=== PATIENT | female | born 1995 | race Two or more races ===

== ENCOUNTER 2019-11-06 16:45 | Emergency (ER) | payer MEDICAID ==
[~2019-11-06] VITALS: Ht 167.6 cm; Wt 52.2 kg
--- NOTE | 2019-11-06 16:45 | NUR ---
ED Nurse Note: Patient ambulated to ED from home with complaints of abdominal pain. Per patient pain is on right lower quadrant now but was left lower quadrant before. Patient stated that she was discharged in [facility] 2 days ago. Patient is AAOx4 and ambulatory. Per patient she experiences mild dizziness/lightheadedness as of the moment but denies any nausea nor vomiting.
--- NOTE | 2019-11-06 17:00 | NUR ---
ED Nurse Note: ERMD at bedside
[2019-11-06 17:20] VITALS: BP 94/48
--- NOTE | 2019-11-06 17:23 | Emergency Room Report ---
History of Present Illness General Chief Complaint: Abdominal Pain Source: Patient Present Illness HPI Disclaimer: Please note that this report is being documented using [employer] technology. This can lead to erroneous entry secondary to incorrect interpretation by the dictating instrument. HPI: 24-year-old otherwise healthy female presents for evaluation of abdominal pain. Symptoms present approximately 1 week. She notes migratory lower abdominal pain and cramping currently on the left side. Several days ago she was seen at [facility] where she had right lower quadrant pain and vomiting. She was evaluated but no imaging was performed. She was discharged with antinausea medications. She awoke today having worsening 10/10 abdominal pain on the left side that is nonradiating. Denies dysuria, hematuria. LMP was 10/21. Denies vaginal bleeding or discharge. Denies fever, chills, chest pain, shortness of breath. Reports left-sided flank pain. PMH: Denies PSH: Denies Allergies: Denies Social Hx: Denies Allergies: Coded Allergies: No Known Allergies (Unverified , 11/06/19) COVID-19 Screening Contact w/high risk pt: No Recent Travel to affected area: No Experienced COVID-19 symptoms?: No COVID-19 Testing performed LEAD SALES CONSULTANT: No Patient History Last Menstrual Period: 10/22/19 Now: No Nursing Documentation-PMH Past Medical History: No Stated History Review of Systems All Other Systems: negative except mentioned in HPI Physical Exam Vital Signs Date Time Temp Pulse Resp B/P (MAP) Pulse Ox O2 Delivery O2 Flow Rate FiO2 11/06/19 16:49 98.2 116 19 94/48 (63) 95 Room Air General: Awake and alert, no acute distress HEENT: NC/AT. EOMI. Cardiovascular: Tachycardic. S1 and S2 normal. No murmur appreciated Resp: Normal work of breathing. No cough, wheezing or crackles appreciated Abdomen: Abdomen is soft, nondistended. Tender palpation the left lower quadrant. Mild tenderness right lower quadrant no rebound. No masses. Skin: Intact. No abrasions, laceration or rash over the exposed skin MSK: Normal tone and bulk. Moving all extremities. No obvious deformity. Neuro: Awake and alert. Mentating appropriately. Medical Decision Making Diagnostic Impression: Primary Impression: Ovarian cyst Additional Impression: Abdominal pain ER Course 24-year-old female presents for evaluation of 1 week lower abdominal pain and cramping. Differential includes was not limited to UTI, pyelonephritis, ectopic , intra-abdominal abscess, ovarian torsion, ovarian cyst, kidney stone, mesenteric ischemia to name a few. Broad labs were obtained which returned within normal limits. hCG was negative and CT scan of the abdomen and pelvis was obtained due to worsening pain. No acute findings were reported. An ultrasound was obtained initially concerning for ovarian cyst according to water pollution control technician report. Stat read found no acute pathology but did find some trace free fluid which may be physiologic or due to a ruptured ovarian cyst. Patient was treated with pain medication presumably ruptured cyst. We will follow-up with RESIDENTIAL THERAPIST. Prescribed additional pain medication for short-term. Can return with any new or worsening symptoms. Stable for outpatient follow-up. Laboratory Tests Test 11/06/19 17:00 White Blood Count 10.5 K/UL (4.8-10.8) Red Blood Count 4.63 M/UL (4.20-5.40) Hemoglobin 13.7 G/DL (12.0-16.0) Hematocrit 42.6 % (37.0-47.0) Mean Corpuscular Volume 92 FL (80-99) Mean Corpuscular Hemoglobin 29.5 PG (27.0-31.0) Mean Corpuscular Hemoglobin Concent 32.0 G/DL (32.0-36.0) Red Cell Distribution Width 11.4 % (11.6-14.8) L Platelet Count 267 K/UL (150-450) Mean Platelet Volume 8.1 FL (6.5-10.1) Neutrophils (%) (Auto) 70.0 % (45.0-75.0) Lymphocytes (%) (Auto) 20.4 % (20.0-45.0) Monocytes (%) (Auto) 6.7 % (1.0-10.0) Eosinophils (%) (Auto) 1.5 % (0.0-3.0) Basophils (%) (Auto) 1.4 % (0.0-2.0) Urine Color Yellow Urine Appearance Slightly cloudy Urine pH 5 (4.5-8.0) Urine Specific [place] 1.020 (1.005-1.035) Urine Protein 1+ (NEGATIVE) H Urine Glucose (UA) Negative (NEGATIVE) Urine Ketones 3+ (NEGATIVE) H Urine Blood 1+ (NEGATIVE) H Urine Nitrite Negative (NEGATIVE) Urine Bilirubin Negative (NEGATIVE) Urine Urobilinogen Normal MG/DL (0.0-1.0) Urine Leukocyte Esterase 1+ (NEGATIVE) H Urine RBC 2-4 /HPF (0 - 2) H Urine WBC 2-4 /HPF (0 - 2) Urine Squamous Epithelial Cells Few /LPF (NONE/OCC) Urine Bacteria Few /HPF (NONE) Urine HCG, Qualitative Negative (NEGATIVE) Sodium Level 140 MMOL/L (136-145) Potassium Level 3.1 MMOL/L (3.5-5.1) L Chloride Level 102 MMOL/L (98-107) Carbon Dioxide Level 28 MMOL/L (21-32) Anion Gap 10 mmol/L (5-15) Blood Urea Nitrogen 6 mg/dL (7-18) L Creatinine 0.9 MG/DL (0.55-1.30) Estimated Glomerular Filtration Rate > 60 mL/min (>60) Glucose Level 81 MG/DL (74-106) Calcium Level 9.0 MG/DL (8.5-10.1) Total Bilirubin 0.4 MG/DL (0.2-1.0) Aspartate Amino Transferase (AST) 22 U/L (15-37) Alanine Aminotransferase (ALT) 18 U/L (12-78) Alkaline Phosphatase 74 U/L (46-116) Total Protein 8.1 G/DL (6.4-8.2) Albumin 4.2 G/DL (3.4-5.0) Globulin 3.9 g/dL Albumin/Globulin Ratio 1.1 (1.0-2.7) Lipase 147 U/L (73-393) CT/MRI/US Diagnostic Results CT/MRI/US Diagnostic Results : Impression Final Report EXAM: CT Abdomen and Pelvis With Intravenous Contrast CLINICAL HISTORY: ABD PAIN TECHNIQUE: Axial computed tomography images of the abdomen and pelvis with intravenous contrast. CTDI is 4 mGy and DLP is 187 mGy-cm. One or more of the following dose reduction techniques were used: automated exposure control, adjustment of the mA and/or kV according to patient size, use of iterative reconstruction technique. Coronal and sagittal reformatted images were created and reviewed. COMPARISON: No relevant prior studies available. FINDINGS: Lung bases: Unremarkable. No mass. No consolidation. ABDOMEN: Liver: Unremarkable. No mass. Gallbladder and bile ducts: Unremarkable. No calcified stones. No ductal dilation. Pancreas: Unremarkable. No mass. No ductal dilation. Spleen: Unremarkable. No splenomegaly. Adrenals: Unremarkable. No mass. Kidneys and ureters: Unremarkable. No solid mass. No hydronephrosis. Stomach and bowel: Unremarkable. No obstruction. No mucosal thickening. PELVIS: Appendix: Unremarkable appendix. Bladder: Unremarkable. No mass. Reproductive: Unremarkable as visualized. ABDOMEN and PELVIS: Intraperitoneal space: Unremarkable. No free air. No significant fluid collection. Bones/joints: No acute fracture. No dislocation. Soft tissues: Unremarkable. Vasculature: Unremarkable. No abdominal aortic aneurysm. Lymph nodes: Unremarkable. No enlarged lymph nodes. IMPRESSION: 1. No acute abnormality definitively identified to account for patient presentation. 2. Unremarkable appendix. 3. Unremarkable study. Radiologist: Aurelio Polanco MD Electronically Signed: 11/06/19 18:53 Study ready at 18:50 and initial results transmitted at 18:53 Final Report EXAM: US Pelvis Transvaginal and US Duplex Arterial/Venous of the Pelvis, Complete CLINICAL HISTORY: PAIN TECHNIQUE: Real-time transvaginal pelvic ultrasound with image documentation. Transvaginal imaging was used for better evaluation of the endometrium and adnexa. Real-time duplex ultrasound scan of the arterial and venous flow of the pelvis with color Doppler flow and spectral waveform analysis. COMPARISON: Same day CT FINDINGS: Uterus/cervix: Uterus 6 x 4.6 x 3 cm Endometrium 0.6 cm No myometrial mass. Right ovary: Right ovary 3 x 1.6 x 2.7 cm No torsion. Left ovary: Left ovary 3 x 3 x 1.7 cm No torsion. Free fluid: Likely physiologic pelvic free fluid. Bladder: Empty bladder which cannot be evaluated with this probe. Other findings: Unremarkable study. IMPRESSION: 1. No acute abnormality definitively identified to account for patient presentation. 2. Unremarkable study. Radiologist: Aurelio Polanco MD Electronically Signed: 11/06/19 20:24 Study ready at 20:20 and initial results transmitted at 20:24 Last Vital Signs Date Time Temp Pulse Resp B/P (MAP) Pulse Ox O2 Delivery O2 Flow Rate FiO2 11/06/19 16:49 98.2 116 19 94/48 (63) 95 Room Air Disposition: HOME, SELF-CARE Condition: Improved Scripts Ondansetron Odt* (ZOFRAN ODT*) 4 Mg Tab.rapdis 4 MG BC EVERY 6 HOURS PRN for Nausea & Vomiting, #10 TAB 0 Refills Prov: Haider He MD 11/06/19 Hydrocodone Bit/Acetaminophen 5-325* (NORCO 5-325 TABLET*) 1 Each Tablet 1 TAB ORAL Q6H PRN for FOR PAIN, #10 TAB 0 Refills Prov: Haider He MD 11/06/19 Ibuprofen* (MOTRIN*) 600 Mg Tablet 600 MG ORAL Q6H PRN for For Pain, #30 TAB 0 Refills Prov: Haider He MD 11/06/19 Haider He MD November 06, 2019 17:23
[2019-11-06] MEDS ORDERED: Omnipaque-300 100ml vial INJ PRN (17:30)
[2019-11-06 17:57] LABS: ANION GAP 10 mmol/L (5-15); BLOOD UREA NITROGEN 6 mg/dL (7-18); CARBON DIOXIDE 28 MMOL/L (21-32); CHLORIDE 102 MMOL/L (98-107); CREATININE 0.9 MG/DL (0.55-1.30); POTASSIUM 3.1 MMOL/L (3.5-5.1); SODIUM 140 MMOL/L (136-145)
[2019-11-06 17:59] LABS: ALANINE AMINOTRANSFERASE 18 U/L (12-78); ALBUMIN 4.2 G/DL (3.4-5.0); ALBUMIN/GLOBULIN RATIO 1.1 (1.0-2.7); ALKALINE PHOSPHATASE 74 U/L (46-116); ASPARTATE AMINO TRANSFERASE 22 U/L (15-37); BILIRUBIN,TOTAL 0.4 MG/DL (0.2-1.0)
[2019-11-06 18:00] LABS: APPEARANCE,URINE SLIGHTLY CLOUDY; BILIRUBIN, URINE NEGATIVE (NEGATIVE); GLUCOSE, URINE (UA) NEGATIVE (NEGATIVE); KETONES,URINE 3+ (NEGATIVE); LEUKOCYTE ESTERASE ,URINE 1+ (NEGATIVE); NITRITE,URINE NEGATIVE (NEGATIVE); PH,URINE 5 (4.5-8.0); PROTEIN,URINE 1+ (NEGATIVE); UROBILINOGEN,URINE NORMAL MG/DL (0.0-1.0)
[2019-11-06 18:02] LABS: BASOPHILS % (AUTO) 1.4 % (0.0-2.0); EOSINOPHILS % (AUTO) 1.5 % (0.0-3.0); HEMATOCRIT 42.6 % (37.0-47.0); HEMOGLOBIN 13.7 G/DL (12.0-16.0); LYMPHOCYTES % (AUTO) 20.4 % (20.0-45.0); MEAN CORPUSCULAR VOLUME 92 FL (80-99); MONOCYTES % (AUTO) 6.7 % (1.0-10.0); PLATELET COUNT 267 K/UL (150-450); RED BLOOD COUNT 4.63 M/UL (4.20-5.40); RED CELL DISTRIBUTION WIDTH 11.4 % (11.6-14.8); WHITE BLOOD COUNT 10.5 K/UL (4.8-10.8)
[2019-11-06 18:17] LABS: COLOR,URINE YELLOW
--- NOTE | 2019-11-06 18:30 | NUR ---
ED Nurse Note: Patient to CT-scan
--- NOTE | 2019-11-06 18:51 | NUR ---
ED Nurse Note: Patient back from CT scan
--- NOTE | 2019-11-06 18:54 | Diagnostic Imaging Report ---
EXAM: CT Abdomen and Pelvis With Intravenous Contrast CLINICAL HISTORY: ABD PAIN TECHNIQUE: Axial computed tomography images of the abdomen and pelvis with intravenous contrast. CTDI is 4 mGy and DLP is 187 mGy-cm. One or more of the following dose reduction techniques were used: automated exposure control, adjustment of the mA and/or kV according to patient size, use of iterative reconstruction technique. Coronal and sagittal reformatted images were created and reviewed. COMPARISON: No relevant prior studies available. FINDINGS: Lung bases: Unremarkable. No mass. No consolidation. ABDOMEN: Liver: Unremarkable. No mass. Gallbladder and bile ducts: Unremarkable. No calcified stones. No ductal dilation. Pancreas: Unremarkable. No mass. No ductal dilation. Spleen: Unremarkable. No splenomegaly. Adrenals: Unremarkable. No mass. Kidneys and ureters: Unremarkable. No solid mass. No hydronephrosis. Stomach and bowel: Unremarkable. No obstruction. No mucosal thickening. PELVIS: Appendix: Unremarkable appendix. Bladder: Unremarkable. No mass. Reproductive: Unremarkable as visualized. ABDOMEN and PELVIS: Intraperitoneal space: Unremarkable. No free air. No significant fluid collection. Bones/joints: No acute fracture. No dislocation. Soft tissues: Unremarkable. Vasculature: Unremarkable. No abdominal aortic aneurysm. Lymph nodes: Unremarkable. No enlarged lymph nodes. IMPRESSION: 1. No acute abnormality definitively identified to account for patient presentation. 2. Unremarkable appendix. 3. Unremarkable study.
[2019-11-06] MEDS ORDERED: Morphine Sulfate 4mg/ml Inj (IV USE ONLY) IVP ONE ×2 (19:00→20:15)
--- NOTE | 2019-11-06 19:09 | NUR ---
HAND-OFF: Report given to Breonna.
--- NOTE | 2019-11-06 19:10 | NUR ---
ED Nurse Note: pt care endorsed by TOLU Davis Addendum: 11/06/19 at 1922 by LISSETH pt care endorsed by SULAIMAN Davis. pt appears to be in pain, tearful. ERMD is aware, pt has US pending
[2019-11-06 19:12] VITALS: BP 98/49
--- NOTE | 2019-11-06 19:37 | NUR ---
ED Nurse Note: US at pt bedside
[2019-11-06] MEDS ORDERED: ONDANSETRON ODT4 MG BC (20:10)
[2019-11-06] MEDS ORDERED: IBUPROFEN600 M1 ORAL (20:10)
[2019-11-06] MEDS ORDERED: NORCO 5-325 TA1 EAC1 ORAL (20:10)
[2019-11-06] MEDS ORDERED: Ketorolac 30mg Inj IV ONE (20:15)
--- NOTE | 2019-11-06 20:25 | Diagnostic Imaging Report ---
EXAM: US Pelvis Transvaginal and US Duplex Arterial/Venous of the Pelvis, Complete CLINICAL HISTORY: PAIN TECHNIQUE: Real-time transvaginal pelvic ultrasound with image documentation. Transvaginal imaging was used for better evaluation of the endometrium and adnexa. Real-time duplex ultrasound scan of the arterial and venous flow of the pelvis with color Doppler flow and spectral waveform analysis. COMPARISON: Same day CT FINDINGS: Uterus/cervix: Uterus 6 x 4.6 x 3 cm Endometrium 0.6 cm No myometrial mass. Right ovary: Right ovary 3 x 1.6 x 2.7 cm No torsion. Left ovary: Left ovary 3 x 3 x 1.7 cm No torsion. Free fluid: Likely physiologic pelvic free fluid. Bladder: Empty bladder which cannot be evaluated with this probe. Other findings: Unremarkable study. IMPRESSION: 1. No acute abnormality definitively identified to account for patient presentation. 2. Unremarkable study.
--- NOTE | 2019-11-06 20:25 | Diagnostic Imaging Report ---
EXAM: US Pelvis Transabdominal, Complete CLINICAL HISTORY: PAIN TECHNIQUE: Real-time complete transabdominal pelvic ultrasound with image documentation. COMPARISON: Same day CT FINDINGS: Uterus/cervix: Uterus 6 x 4.6 x 3 cm Endometrium 0.6 cm No myometrial mass. Right ovary: Right ovary 3 x 1.6 x 2.7 cm No torsion. Left ovary: Left ovary 3 x 3 x 1.7 cm No torsion. Free fluid: Likely physiologic pelvic free fluid. Bladder: Empty bladder which cannot be evaluated with this probe. Other findings: Unremarkable study. IMPRESSION: 1. No acute abnormality definitively identified to account for patient presentation. 2. Unremarkable study.
[2019-11-06 20:30] VITALS: BP 98/49
--- NOTE | 2019-11-06 20:30 | NUR ---
ER DISCHARGE NOTE: Patient is cleared to be discharged per ERMD, pt is aox4, on room air, with stable vital signs. pt was given dc and prescription instructions, pt was able to verbalize understanding, pt id band and iv site removed without complications. pt is able to ambulate with steady gait. pt took all belongings.
== END 2019-11-06 20:30 | disposition home or self-care (01) ==
LOC: EMR 17:29
DX: N83.209 Unspecified ovarian cyst, unspecified side (principal); R10.32 Left lower quadrant pain; R10.31 Right lower quadrant pain
CPT/HCPCS: 36415; 74177; 76830; 76856; 80053; 81003; 81025; 83690; 85025; 96361; 96374; 96375; 96376; J1885; J2270; J7030; Q9967; Z7502; 99284; J8499

== ENCOUNTER 2019-11-21 22:17 | Emergency (ER) | payer MEDICAID ==
[~2019-11-21] VITALS: Ht 167.6 cm; Wt 54.4 kg
[~2019-11-21 22:17] MED LIST: IBUPROFEN600 M1 ORAL; NORCO 5-325 TA1 EAC1 ORAL; ONDANSETRON ODT4 MG BC
[2019-11-21 22:28] VITALS: BP 111/68
--- NOTE | 2019-11-21 22:28 | NUR ---
ED Nurse Note: Patient walked in to ED from home c/o right rib pain radiating to right back since yesterday, unk cause. Denies trauma/ injury. No SOB. ERMD at bedside.
--- NOTE | 2019-11-21 22:34 | Emergency Room Report ---
History of Present Illness General Chief Complaint: Pain Source: Patient Present Illness HPI This a 24-year-old female with no past medical history. She presents with chief plaint of right rib/right upper quadrant pain. Pain started mild yesterday but increasing pain now. Pain is to the right upper quadrant rating to the back. No nausea no vomiting. No fever chills. Pain is 9 out of 10. Worse with certain movement. Better with rest. Not associated with food. Allergies: Coded Allergies: No Known Allergies (Unverified , 11/06/19) COVID-19 Screening Contact w/high risk pt: No Recent Travel to affected area: No Experienced COVID-19 symptoms?: No COVID-19 Testing performed SENIOR NETWORK SECURITY ENGINEER: No Patient History Past Medical History: see triage record, old chart reviewed Past Surgical History: none Pertinent Family History: none Social History: Denies: smoking Last Menstrual Period: October 22, 2019 Now: No Immunizations: other Reviewed Nursing Documentation: PMH: Agreed; PSxH: Agreed Nursing Documentation-PMH Past Medical History: No Stated History Review of Systems Eye: Denies: eye pain, blurred vision ENT: Denies: ear pain, nose congestion, throat swelling Respiratory: Denies: cough, shortness of breath Cardiovascular: Denies: chest pain, palpitations Gastrointestinal: Reports: abdominal pain; Denies: diarrhea, nausea, vomiting Musculoskeletal: Denies: back pain, joint pain Skin: Denies: rash Neurological: Denies: headache, numbness Endocrine: Denies: increased thirst, increased urine Hematologic/Lymphatic: Denies: easy bruising All Other Systems: negative except mentioned in HPI Physical Exam Vital Signs Date Time Temp Pulse Resp B/P (MAP) Pulse Ox O2 Delivery O2 Flow Rate FiO2 11/21/19 22:22 98.4 81 16 111/68 (82) 96 Room Air Vitals normal Sp02 EP Interpretation: reviewed, normal General Appearance: well appearing, no apparent distress, alert Head: normocephalic, atraumatic Eyes: bilateral eye PERRL, bilateral eye EOMI ENT: hearing grossly normal, normal pharynx Neck: full range of motion, supple, no meningismus Respiratory: chest non-tender, lungs clear, normal breath sounds Cardiovascular #1: regular rate, rhythm, no murmur Gastrointestinal: normal bowel sounds, no mass, no organomegaly, no bruit, non- distended, tenderness - Upper quadrant, right Musculoskeletal: back normal, normal range of motion, gait/station normal Psychiatric: mood/affect normal Medical Decision Making Diagnostic Impression: Primary Impression: Cholelithiasis Qualified Codes: K80.20 - Calculus of gallbladder without cholecystitis without obstruction Additional Impression: UTI (urinary tract infection) Qualified Codes: N30.00 - Acute cystitis without hematuria ER Course This is a 24-year-old female presents with right upper quadrant pain. Ultrasound showed 4 mm gallbladder polyp versus gallstone. No evidence of any obstruction or infection. Pain is better controlled now. Will discharge home. CT/MRI/US Diagnostic Results CT/MRI/US Diagnostic Results : Imaging Test Ordered: Gallbladder ultrasound Impression Read by radiologist. 4 mm gallbladder polyp versus non-shadowing calculus. No cholecystitis. Last Vital Signs Date Time Temp Pulse Resp B/P (MAP) Pulse Ox O2 Delivery O2 Flow Rate FiO2 11/21/19 22:28 98.4 81 16 111/68 96 Room Air Status: improved Disposition: HOME, SELF-CARE Condition: Stable Scripts Hydrocodone/Acetaminophen 5-325* (HYDROCODONE/ACETAMINOPHEN 5-325*) 1 Each Tablet 1 TAB ORAL Q6H PRN for For Pain, #20 TAB 0 Refills Prov: Abhay Lerma MD 11/22/19 Nitrofurantoin Monohyd/M-Cryst (Nitrofurantoin [place]-Mcr 100 mg) 100 Mg Capsule 100 MG ORAL Q12H, #14 CAP Prov: Abhay Lerma MD 11/22/19 Referrals: NOT CHOSEN IPA/,REFERRING (PCP) Additional Instructions: Follow-up with your doctor in 7 days. You may need referral to see a surgeon if symptoms continue. Return if symptoms worsen. Abhay Lerma MD Nov 21, 2019 22:34
--- NOTE | 2019-11-21 22:35 | NUR ---
ED Nurse Note: IV line established. Blood and urine specimen collected and sent to lab.
[2019-11-21] MEDS ORDERED: Morphine Sulfate 4mg/ml Inj (IV USE ONLY) IVP ONE (22:45)
--- NOTE | 2019-11-21 23:04 | NUR ---
HAND-OFF: Report given to Sonal HILARIO.
[2019-11-21 23:05] LABS: APPEARANCE,URINE CLEAR; BILIRUBIN, URINE NEGATIVE (NEGATIVE); COLOR,URINE PALE YELLOW; GLUCOSE, URINE (UA) NEGATIVE (NEGATIVE); KETONES,URINE NEGATIVE (NEGATIVE); LEUKOCYTE ESTERASE ,URINE 1+ (NEGATIVE); NITRITE,URINE NEGATIVE (NEGATIVE); PH,URINE 6 (4.5-8.0); PROTEIN,URINE NEGATIVE (NEGATIVE); UROBILINOGEN,URINE NORMAL MG/DL (0.0-1.0)
--- NOTE | 2019-11-21 23:11 | NUR ---
ED Nurse Note: US at bedside
[2019-11-21 23:19] LABS: ANION GAP 8 mmol/L (5-15); BLOOD UREA NITROGEN 14 mg/dL (7-18); CALCIUM 8.3 MG/DL (8.5-10.1); CARBON DIOXIDE 27 MMOL/L (21-32); CHLORIDE 101 MMOL/L (98-107); CREATININE 0.9 MG/DL (0.55-1.30); SODIUM 136 MMOL/L (136-145)
[2019-11-21 23:23] LABS: ALANINE AMINOTRANSFERASE 14 U/L (12-78); ALBUMIN 3.2 G/DL (3.4-5.0); ALBUMIN/GLOBULIN RATIO 0.7 (1.0-2.7); ALKALINE PHOSPHATASE 75 U/L (46-116); ASPARTATE AMINO TRANSFERASE 15 U/L (15-37); BILIRUBIN,TOTAL 0.2 MG/DL (0.2-1.0)
[2019-11-21 23:24] LABS: BASOPHILS % (AUTO) 0.9 % (0.0-2.0); EOSINOPHILS % (AUTO) 0.9 % (0.0-3.0); HEMATOCRIT 34.7 % (37.0-47.0); HEMOGLOBIN 10.8 G/DL (12.0-16.0); LYMPHOCYTES % (AUTO) 10.2 % (20.0-45.0); MEAN CORPUSCULAR VOLUME 95 FL (80-99); MONOCYTES % (AUTO) 7.1 % (1.0-10.0); NEUTROPHILS % (AUTO) 80.9 % (45.0-75.0); PLATELET COUNT 254 K/UL (150-450); RED BLOOD COUNT 3.65 M/UL (4.20-5.40); RED CELL DISTRIBUTION WIDTH 12.1 % (11.6-14.8); WHITE BLOOD COUNT 11.7 K/UL (4.8-10.8)
[2019-11-21] MEDS ORDERED: cefTRIAXone 1 GM in NS 55 ML IVPB ONE (23:45)
--- NOTE | 2019-11-21 23:52 | Diagnostic Imaging Report ---
EXAM: US Abdomen Limited, Right Upper Quadrant CLINICAL HISTORY: ABD PAIN TECHNIQUE: Real-time ultrasound of the right upper quadrant with image documentation. COMPARISON: No relevant prior studies available. FINDINGS: Liver: Unremarkable. No mass. No intrahepatic bile duct dilation. Gallbladder: There is a 4 mm echogenic focus in the gallbladder which is most likely a polyp versus non-shadowing calculus. The gallbladder wall measures 1.8 mm in thickness. Common bile duct: The common bile duct measures 4.2 mm in diameter. No stones. No dilation. Pancreas: Unremarkable as visualized. Right kidney: Unremarkable. No stones. No solid mass. No hydronephrosis. IMPRESSION: 1. No cholecystitis. 2. 4 mm gallbladder polyp versus non-shadowing calculus.
[2019-11-22] MEDS ORDERED: Morphine Sulfate 4mg/ml Inj (IV USE ONLY) IVP ONE
--- NOTE | 2019-11-22 00:05 | NUR ---
ED Nurse Note: all mediations administered, pt tolerated well no ss of distress noted.
[2019-11-22] MEDS ORDERED: HYDROCODON-ACE1 EA15 ORAL (00:06)
[2019-11-22] MEDS ORDERED: MACROBID100 MG ORAL (00:06)
[2019-11-22 00:36] VITALS: BP 116/65
--- NOTE | 2019-11-22 00:36 | NUR ---
ER DISCHARGE NOTE: Patient is cleared to be discharged home per ERMD, pt is aox4, 99% on room air, with stable vital signs. pt was given dc and prescription instructions, pt was able to verbalize understanding, pt id band and iv site removed without complications. pt is able to ambulate with steady gait. pt took all belongings.
[2019-11-23] MEDS ORDERED: PERCOCET 5-3251 EACH ORAL (05:51)
== END 2019-11-22 00:36 | disposition home or self-care (01) ==
LOC: EMR 22:32
DX: K80.20 Calculus of gallbladder without cholecystitis without obstruction (principal); N30.00 Acute cystitis without hematuria; R07.81 Pleurodynia
CPT/HCPCS: 36415; 76700; 80053; 81003; 81025; 83690; 85025; 87086; 96361; 96365; 96375; 96376; J0696; J2270; J2405; Z7502; 99284

== ENCOUNTER 2019-11-23 03:38 | Emergency (ER) | payer MEDICAID ==
[~2019-11-23] VITALS: Ht 167.6 cm; Wt 54.4 kg
[~2019-11-23 03:38] MED LIST changes: +HYDROCODON-ACE1 EA15 ORAL; +MACROBID100 MG ORAL
--- NOTE | 2019-11-23 03:57 | NUR ---
ED Nurse Note: Patient walked into the ED with complaints of RUQ pain in the abdomen that radiates at the back pain scale 10/10. Patient was seen in the ED 2 days ago for gallstones and was taking the prescribed meds. Per patient pain is radiating to chest as well. Patient is AAOX4 and ambulatory. Placed on monitor bed
--- NOTE | 2019-11-23 04:00 | NUR ---
ED Nurse Note: ERMD at bedside
--- NOTE | 2019-11-23 04:13 | Emergency Room Report ---
History of Present Illness General Chief Complaint: Abdominal Pain Source: Patient Present Illness HPI Is a 24-year-old female with no past medical history. She presents with chief complaint of abdominal pain. I saw her yesterday for right upper quadrant pain. Laboratory data was unremarkable. Urine analysis showed possible infection. I did an ultrasound which show gallbladder polyp versus stone. Patient was discharged home on pain medication and antibiotics. She stated never got better. Pain is persistent in that area. Worse when she lays down. Worse with palpation. No nausea no vomiting. No diarrhea. Denies any fever chills. Denies any trauma. Pain is 10 out of 10. Allergies: Coded Allergies: No Known Allergies (Unverified , 11/06/19) COVID-19 Screening Contact w/high risk pt: No Recent Travel to affected area: No Experienced COVID-19 symptoms?: No COVID-19 Testing performed CORN COOKER: No Patient History Past Medical History: see triage record, old chart reviewed Past Surgical History: none Pertinent Family History: none Social History: Denies: smoking Last Menstrual Period: 11/21 Now: No : 0 Para: 0 Immunizations: other Reviewed Nursing Documentation: PMH: Agreed; PSxH: Agreed Nursing Documentation-PMH Past Medical History: No Stated History Review of Systems Eye: Denies: eye pain, blurred vision ENT: Denies: ear pain, nose congestion, throat swelling Respiratory: Denies: cough, shortness of breath Cardiovascular: Denies: chest pain, palpitations Gastrointestinal: Reports: abdominal pain; Denies: diarrhea, nausea, vomiting Musculoskeletal: Denies: back pain, joint pain Skin: Denies: rash Neurological: Denies: headache, numbness Endocrine: Denies: increased thirst, increased urine Hematologic/Lymphatic: Denies: easy bruising All Other Systems: negative except mentioned in HPI Physical Exam Vital Signs Date Time Temp Pulse Resp B/P (MAP) Pulse Ox O2 Delivery O2 Flow Rate FiO2 11/23/19 03:50 99.0 84 19 112/73 (86) 98 Room Air Vitals normal Sp02 EP Interpretation: reviewed, normal General Appearance: well appearing, no apparent distress, alert Head: normocephalic, atraumatic Eyes: bilateral eye PERRL, bilateral eye EOMI ENT: hearing grossly normal, normal pharynx Neck: full range of motion, supple, no meningismus Respiratory: chest non-tender, lungs clear, normal breath sounds Cardiovascular #1: regular rate, rhythm, no murmur Gastrointestinal: normal bowel sounds, no mass, no organomegaly, no bruit, non- distended, tenderness - Right upper quadrant Musculoskeletal: back normal, normal range of motion, gait/station normal Psychiatric: mood/affect normal Medical Decision Making Diagnostic Impression: Primary Impression: Abdominal pain Qualified Codes: R10.11 - Right upper quadrant pain Additional Impression: Ovarian cyst Qualified Codes: N83.209 - Unspecified ovarian cyst, unspecified side ER Course pt presents with abdominal pain. Labs unremarkable. Urine better from infection standpoint. She had gallbladder polyp versus gallstone yesterday on ultrasound. Today she has bilateral ovarian cysts. Possible hemorrhagic cyst. Pain is better controlled now. Will discharge home. CT/MRI/US Diagnostic Results CT/MRI/US Diagnostic Results : Imaging Test Ordered: Abdomen pelvis CT Impression Read by radiologist. Bilateral ovarian cysts. Hemorrhagic component. Last Vital Signs Date Time Temp Pulse Resp B/P (MAP) Pulse Ox O2 Delivery O2 Flow Rate FiO2 11/23/19 03:50 99.0 84 19 112/73 (86) 98 Room Air Status: improved Disposition: HOME, SELF-CARE Condition: Stable Scripts Oxycodone/Acetaminophen 5-325* (PERCOCET 5-325 MG TABLET*) 1 Each Tablet 1 TAB ORAL Q6H PRN for For Pain, #20 TAB Prov: Abhay Lerma MD 11/23/19 Referrals: NOT CHOSEN [facility]/,REFERRING (PCP) Additional Instructions: Follow-up with your doctor in 7 days. You may need referral to see a strategy analyst. Return if symptoms worsen. Abhay Lerma MD Nov 23, 2019 04:13
[2019-11-23] MEDS ORDERED: HYDROmorphone 1mg/ml Carpuject IVP ONE ×2 (04:15→06:00)
--- NOTE | 2019-11-23 04:31 | NUR ---
ED Nurse Note: Patient to CT scan
[2019-11-23 04:33] VITALS: BP 122/73
--- NOTE | 2019-11-23 04:42 | NUR ---
ED Nurse Note: Patient back from CT Scan
[2019-11-23 04:51] LABS: BASOPHILS % (AUTO) 0.7 % (0.0-2.0); EOSINOPHILS % (AUTO) 0.8 % (0.0-3.0); HEMATOCRIT 36.9 % (37.0-47.0); HEMOGLOBIN 11.7 G/DL (12.0-16.0); LYMPHOCYTES % (AUTO) 9.5 % (20.0-45.0); MEAN CORPUSCULAR VOLUME 95 FL (80-99); MONOCYTES % (AUTO) 4.8 % (1.0-10.0); NEUTROPHILS % (AUTO) 84.2 % (45.0-75.0); PLATELET COUNT 274 K/UL (150-450); RED BLOOD COUNT 3.91 M/UL (4.20-5.40); RED CELL DISTRIBUTION WIDTH 11.8 % (11.6-14.8); WHITE BLOOD COUNT 11.1 K/UL (4.8-10.8)
[2019-11-23 04:55] LABS: APPEARANCE,URINE CLEAR; BILIRUBIN, URINE NEGATIVE (NEGATIVE); GLUCOSE, URINE (UA) NEGATIVE (NEGATIVE); KETONES,URINE 4+ (NEGATIVE); LEUKOCYTE ESTERASE ,URINE 1+ (NEGATIVE); NITRITE,URINE NEGATIVE (NEGATIVE); PH,URINE 5 (4.5-8.0); PROTEIN,URINE 1+ (NEGATIVE); UROBILINOGEN,URINE NORMAL MG/DL (0.0-1.0)
[2019-11-23 04:59] LABS: COLOR,URINE YELLOW
[2019-11-23 05:08] LABS: ALANINE AMINOTRANSFERASE 13 U/L (12-78); ALBUMIN 3.5 G/DL (3.4-5.0); ALBUMIN/GLOBULIN RATIO 0.7 (1.0-2.7); ALKALINE PHOSPHATASE 85 U/L (46-116); ANION GAP 11 mmol/L (5-15); ASPARTATE AMINO TRANSFERASE 21 U/L (15-37); BILIRUBIN,TOTAL 0.4 MG/DL (0.2-1.0); BLOOD UREA NITROGEN 7 mg/dL (7-18); CALCIUM 8.4 MG/DL (8.5-10.1); CARBON DIOXIDE 27 MMOL/L (21-32); CHLORIDE 100 MMOL/L (98-107); CREATININE 0.9 MG/DL (0.55-1.30); POTASSIUM 2.9 MMOL/L (3.5-5.1); SODIUM 138 MMOL/L (136-145)
--- NOTE | 2019-11-23 05:25 | Diagnostic Imaging Report ---
EXAM: CT Abdomen and Pelvis Without Intravenous Contrast CLINICAL HISTORY: ABD PAIN TECHNIQUE: Axial computed tomography images of the abdomen and pelvis without intravenous contrast. CTDI is 3.9 mGy and DLP is 203.9 mGy-cm. One or more of the following dose reduction techniques were used: automated exposure control, adjustment of the mA and/or kV according to patient size, use of iterative reconstruction technique. Coronal and sagittal reformatted images were created and reviewed. COMPARISON: Ultrasound 11/21/19 and CTA abdomen/pelvis 11/06/19 FINDINGS: Lung bases: Right lower lobe atelectasis. Pleural space: Small right pleural effusion. ABDOMEN: Liver: Hepatomegaly (18.2 cm) without intrahepatic biliary ductal dilatation. Gallbladder and bile ducts: Possible layering gallbladder sludge. No stones evident on recent ultrasound. No common bile duct dilation. Pancreas: Unremarkable. No ductal dilation or peripancreatic inflammatory stranding. Spleen: Unremarkable. No splenomegaly. Adrenals: Unremarkable. No mass. Kidneys and ureters: Unremarkable. No obstructing radiopaque stones or hydroureteronephrosis. Stomach and bowel: No small bowel obstruction. Mildly increased proximal colonic stool without evidence for colitis. PELVIS: Appendix: Normal appendix. Depression new. Normal appendix. Bladder: Unremarkable. No stones. Reproductive: Bilateral adnexal cystic lesions measuring up to 4.7 cm on the left and 4 cm on the right. Dependent hyperdensity associated with the left-sided lesion is likely indicative of hemorrhagic cyst. Tampon in the vagina. ABDOMEN and PELVIS: Intraperitoneal space: Small pelvic and right paracolic gutter free fluid. No free air. Bones/joints: Mild lower lumbar degenerative disc disease. Soft tissues: Small fat-containing umbilical hernia. Vasculature: Unremarkable. No abdominal aortic aneurysm. Lymph nodes: Unremarkable. No enlarged lymph nodes. IMPRESSION: 1. Bilateral adnexal cystic lesions measuring up to 4.7 cm on the left and 4 cm on the right. Dependent hyperdensity associated with the left- sided lesion is likely indicative of hemorrhagic cyst. Pelvic ultrasound could further assess as clinically warranted. 2. Small pelvic and right paracolic gutter free fluid. 3. Small right pleural effusion and right lower lobe atelectasis. 4. Additional incidental/chronic findings as above.
[2019-11-23] MEDS ORDERED: PERCOCET 5-3251 EACH ORAL (05:51)
[2019-11-23] MEDS ORDERED: Ketorolac 30mg Inj IV ONE (06:00)
[2019-11-23 06:30] VITALS: BP 122/73
--- NOTE | 2019-11-23 06:35 | NUR ---
ER DISCHARGE NOTE: Patient is cleared to be discharged per ERMD, pt is aox4, on room air, with stable vital signs. pt was given dc and prescription instructions, pt was able to verbalize understanding, pt id band and iv site removed without complications. pt is able to ambulate with steady gait. pt was picked up by her mom. pt took all belongings.
[2019-11-23 06:38] VITALS: BP 124/76
== END 2019-11-23 06:35 | disposition home or self-care (01) ==
LOC: EMR 03:57
DX: R10.11 Right upper quadrant pain (principal); N83.202 Unspecified ovarian cyst, left side; N83.201 Unspecified ovarian cyst, right side
CPT/HCPCS: 36415; 74176; 80053; 80307; 81003; 81025; 83690; 85025; 96374; 96375; 96376; J1170; J1885; J2405; Z7502; 99284

== ENCOUNTER 2019-11-25 05:33 | Emergency (ER) | payer MEDICAID ==
[~2019-11-25] VITALS: Ht 167.6 cm; Wt 54.4 kg
[~2019-11-25 05:33] MED LIST changes: +PERCOCET 5-3251 EACH ORAL
[2019-11-25 06:00] VITALS: BP 118/83
[2019-11-25] MEDS ORDERED: Morphine Sulfate 4mg/ml Inj (IV USE ONLY) IVP ONE (06:15)
[2019-11-25] MEDS ORDERED: DiphenhydrAMINE 50mg/ml Inj IVP ONE (06:15)
[2019-11-25] MEDS ORDERED: Metoclopramide 10mg/2ml Inj IVP ONE (06:15)
[2019-11-25 06:39] LABS: APPEARANCE,URINE CLEAR; BILIRUBIN, URINE NEGATIVE (NEGATIVE); GLUCOSE, URINE (UA) NEGATIVE (NEGATIVE); KETONES,URINE 4+ (NEGATIVE); LEUKOCYTE ESTERASE ,URINE 1+ (NEGATIVE); NITRITE,URINE NEGATIVE (NEGATIVE); PH,URINE 5 (4.5-8.0); PROTEIN,URINE 1+ (NEGATIVE); UROBILINOGEN,URINE NORMAL MG/DL (0.0-1.0)
[2019-11-25 06:40] LABS: COLOR,URINE YELLOW
--- NOTE | 2019-11-25 06:45 | Emergency Room Report ---
History of Present Illness General Chief Complaint: Abdominal Pain Source: Patient Present Illness HPI The patient was seen 4 days ago and diagnosed with gallstones (or gallbladder polyp). Last night she began to have right upper quadrant pain and has been vomiting since 3 AM. She was given oxycodone but could not keep it down. She did not have any medication for nausea. She says she vomited up some blood. She makes a lummi with her index finger and thumb about the amount this morning. She says that she vomited a blood yesterday also. She has not moved her bowels. She denies any melena. She denies dysuria. She feels dehydrated at this time as she cannot keep down any liquids. She is on her menstruation at this time. She also returned 2 days ago for continued pain. At that time her potassium was 2.9. Both visits her white count was slightly elevated at 11,000+. Ultrasound done on November 20 revealed this: IMPRESSION: 1. No cholecystitis. 2. 4 mm gallbladder polyp versus non-shadowing calculus. A CT of the abdomen and pelvis was done 2 days ago. IMPRESSION: 1. Bilateral adnexal cystic lesions measuring up to 4.7 cm on the left and 4 cm on the right. Dependent hyperdensity associated with the left-sided lesion is likely indicative of hemorrhagic cyst. Pelvic ultrasound could further assess as clinically warranted. 2. Small pelvic and right paracolic gutter free fluid. 3. Small right pleural effusion and right lower lobe atelectasis. 4. Additional incidental/chronic findings as above. No fevers, chills, sore throat, chest pain, palpitations, shortness of breath, joint pain, rashes, depression, anxiety, visual changes, dizziness, headache. Allergies: Coded Allergies: No Known Allergies (Unverified , 11/06/19) COVID-19 Screening Contact w/high risk pt: No Recent Travel to affected area: No Experienced COVID-19 symptoms?: No COVID-19 Testing performed [employer]ER: No Patient History Past Medical History: see triage record, old chart reviewed Social History: Reports: drug use - Cannabis; Denies: smoking, alcohol use Social History Narrative not working now. Lives with Grandmother and brother. 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 [employer] Last Menstrual Period: 11/22/19 Now: No : 0 Para: 0 Reviewed Nursing Documentation: PMH: Agreed; PSxH: Agreed Nursing Documentation-PMH Past Medical History: No Stated History Review of Systems All Other Systems: negative except mentioned in HPI Physical Exam Vital Signs Date Time Temp Pulse Resp B/P (MAP) Pulse Ox O2 Delivery O2 Flow Rate FiO2 11/25/19 05:38 98.6 86 18 118/83 (95) 95 Room Air Sp02 EP Interpretation: reviewed, normal General Appearance: well appearing, no apparent distress, GCS 15 Head: normocephalic Eyes: bilateral eye normal inspection, bilateral eye PERRL, bilateral eye EOMI ENT: moist mucus membranes Neck: supple Respiratory: lungs clear, normal breath sounds Cardiovascular #1: regular rate, rhythm Cardiovascular #2: 2+ radial (R) Gastrointestinal: normal inspection, normal bowel sounds, no mass, non- distended, no guarding, no rebound, tenderness - Epigastric and right upper quadrant Musculoskeletal: back normal, normal range of motion, gait/station normal Neurologic: alert, oriented x3, grossly normal Psychiatric: mood/affect normal Skin: no rash, warm/dry Medical Decision Making Diagnostic Impression: Primary Impression: Gastritis Qualified Codes: K29.00 - Acute gastritis without bleeding Additional Impression: Nausea and vomiting Qualified Codes: R11.2 - Nausea with vomiting, unspecified ER Course Patient presents with right upper quadrant pain with a history of cholelithiasis versus a polyp and vomiting is small amount of blood. Differential includes Margaret-Rodas tear, gastritis, ulcer, biliary colic, pancreatitis amongst others. Concerned as her potassium was low at her last visit. Evaluation with labs. Treatment with Reglan, Benadryl and morphine along with Pepcid. Potassium will be replaced also. White count slightly elevated. H&H slightly low. Potassium 3.1. The rest of serum CMP is normal with normal lipase. Urinalysis with some pyuria. Patient still with nausea and now chest pain. Vomited a scant amount of bilious material without blood. CXR ordered. Mylanta and zofran ordered. Chest x-ray clear. Improved with pain relief after Mylanta and viscous lidocaine. Nausea is resolved also. Patient ate a sandwich. Discussed findings with patient. Discussed outpatient observation and treatment plan. Patient stable for outpatient observation and treatment. Laboratory Tests Test 11/25/19 06:15 White Blood Count 12.3 K/UL (4.8-10.8) H Red Blood Count 3.52 M/UL (4.20-5.40) L Hemoglobin 10.6 G/DL (12.0-16.0) L Hematocrit 32.9 % (37.0-47.0) L Mean Corpuscular Volume 93 FL (80-99) Mean Corpuscular Hemoglobin 30.2 PG (27.0-31.0) Mean Corpuscular Hemoglobin Concent 32.3 G/DL (32.0-36.0) Red Cell Distribution Width 11.2 % (11.6-14.8) L Platelet Count 308 K/UL (150-450) Mean Platelet Volume 7.5 FL (6.5-10.1) Neutrophils (%) (Auto) % (45.0-75.0) Lymphocytes (%) (Auto) % (20.0-45.0) Monocytes (%) (Auto) % (1.0-10.0) Eosinophils (%) (Auto) % (0.0-3.0) Basophils (%) (Auto) % (0.0-2.0) Differential Total Cells Counted 100 Neutrophils % (Manual) 83 % (45-75) H Lymphocytes % (Manual) 9 % (20-45) L Monocytes % (Manual) 8 % (1-10) Eosinophils % (Manual) 0 % (0-3) Basophils % (Manual) 0 % (0-2) Band Neutrophils 0 % (0-8) Platelet Estimate Adequate Platelet Morphology Normal Hypochromasia 1+ Anisocytosis 1+ Urine Color Yellow Urine Appearance Clear Urine pH 5 (4.5-8.0) Urine Specific [place] 1.020 (1.005-1.035) Urine Protein 1+ (NEGATIVE) H Urine Glucose (UA) Negative (NEGATIVE) Urine Ketones 4+ (NEGATIVE) H Urine Blood 2+ (NEGATIVE) H Urine Nitrite Negative (NEGATIVE) Urine Bilirubin Negative (NEGATIVE) Urine Urobilinogen Normal MG/DL (0.0-1.0) Urine Leukocyte Esterase 1+ (NEGATIVE) H Urine RBC 2-4 /HPF (0 - 2) H Urine WBC 5-10 /HPF (0 - 2) H Urine Squamous Epithelial Cells Few /LPF (NONE/OCC) Urine Bacteria Few /HPF (NONE) Urine HCG, Qualitative Negative (NEGATIVE) Sodium Level 140 MMOL/L (136-145) Potassium Level 3.1 MMOL/L (3.5-5.1) L Chloride Level 103 MMOL/L (98-107) Carbon Dioxide Level 26 MMOL/L (21-32) Anion Gap 11 mmol/L (5-15) Blood Urea Nitrogen 8 mg/dL (7-18) Creatinine 0.9 MG/DL (0.55-1.30) Estimated Glomerular Filtration Rate > 60 mL/min (>60) Glucose Level 107 MG/DL (74-106) H Calcium Level 8.6 MG/DL (8.5-10.1) Total Bilirubin 0.3 MG/DL (0.2-1.0) Aspartate Amino Transferase (AST) 21 U/L (15-37) Alanine Aminotransferase (ALT) 9 U/L (12-78) L Alkaline Phosphatase 77 U/L (46-116) Total Protein 8.2 G/DL (6.4-8.2) Albumin 3.2 G/DL (3.4-5.0) L Globulin 5.0 g/dL Albumin/Globulin Ratio 0.6 (1.0-2.7) L Lipase 182 U/L (73-393) Chest X-Ray Diagnostic Results Chest X-Ray Diagnostic Results : Chest X-Ray Ordered: Yes # of Views/Limited/Complete: 1 View Indication: Other EP Interpretation: Yes Interpretation: no consolidation, no effusion, no pneumothorax Impression: No acute disease Electronically Signed by: Electronically signed by Ck Anton MD Last Vital Signs Date Time Temp Pulse Resp B/P (MAP) Pulse Ox O2 Delivery O2 Flow Rate FiO2 11/25/19 10:05 98.0 74 19 116/80 100 Room Air Status: improved Disposition: HOME, SELF-CARE Condition: Improved Scripts Famotidine* (Pepcid 20mg tablet*) 20 Mg Tablet 20 MG ORAL DAILY, #30 TAB 0 Refills Prov: Ck Anton MD 11/25/19 Ondansetron Odt* (ZOFRAN ODT*) 4 Mg Tab.rapdis 4 MG BC EVERY 8 HOURS, #10 TAB 0 Refills Prov: Ck Anton MD 11/25/19 Referrals: NOT CHOSEN IPA/,REFERRING (PCP) Ck Anton MD Nov 25, 2019 06:45
[2019-11-25 06:49] LABS: HEMATOCRIT 32.9 % (37.0-47.0); HEMOGLOBIN 10.6 G/DL (12.0-16.0); MEAN CORPUSCULAR VOLUME 93 FL (80-99); PLATELET COUNT 308 K/UL (150-450); RED BLOOD COUNT 3.52 M/UL (4.20-5.40); RED CELL DISTRIBUTION WIDTH 11.2 % (11.6-14.8); WHITE BLOOD COUNT 12.3 K/UL (4.8-10.8)
[2019-11-25 06:55] LABS: ANION GAP 11 mmol/L (5-15); BLOOD UREA NITROGEN 8 mg/dL (7-18); CALCIUM 8.6 MG/DL (8.5-10.1); CARBON DIOXIDE 26 MMOL/L (21-32); CHLORIDE 103 MMOL/L (98-107); CREATININE 0.9 MG/DL (0.55-1.30); POTASSIUM 3.1 MMOL/L (3.5-5.1); SODIUM 140 MMOL/L (136-145)
[2019-11-25] MEDS: NS w/KCl 40mEq 1,000 ML IV SCH ×2 (06:55→09:07)
[2019-11-25 07:00] LABS: ALANINE AMINOTRANSFERASE 9 U/L (12-78); ALBUMIN 3.2 G/DL (3.4-5.0); ALBUMIN/GLOBULIN RATIO 0.6 (1.0-2.7); ALKALINE PHOSPHATASE 77 U/L (46-116); ASPARTATE AMINO TRANSFERASE 21 U/L (15-37); BILIRUBIN,TOTAL 0.3 MG/DL (0.2-1.0)
[2019-11-25 07:20] VITALS: BP 112/79
[2019-11-25] MEDS ORDERED: Morphine Sulfate 2mg/ml Inj(IV/IM USE ONLY) IVP ONE (08:30)
[2019-11-25] MEDS ORDERED: Lidocaine 2% Visc 15ml soln ORAL ONE (08:30)
[2019-11-25] MEDS ORDERED: Mylanta II UD 30ml ORAL ONE (08:30)
[2019-11-25 09:11] VITALS: BP 116/80
[2019-11-25] MEDS ORDERED: FAMOTIDINE20 MG ORAL (09:51)
[2019-11-25] MEDS ORDERED: ONDANSETRON ODT4 MG BC (09:51)
[2019-11-25 10:05] VITALS: BP 116/80
--- NOTE | 2019-11-25 10:14 | Diagnostic Imaging Report ---
Procedure: XRAY Chest 1v Reason for study: Chest pain Comparison films: None. FINDINGS: A single one view chest is obtained. Vascularity is normal. The lung arellano are clear bilaterally. Cardiac and mediastinal silhouette are within normal limits. CP angles are sharp. 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 IMPRESSION: NO ACUTE CARDIOPULMONARY DISEASE.
== END 2019-11-25 10:05 | disposition home or self-care (01) ==
LOC: EMR 06:04
DX: K29.00 Acute gastritis without bleeding (principal); R11.2 Nausea with vomiting, unspecified
CPT/HCPCS: 36415; 71045; 80053; 81003; 81025; 83690; 85007; 85025; 96361; 96374; 96375; 96376; J1200; J2270; J2405; J2765; J7030; S0028; Z7502; 99284